=== PATIENT | male | born 1955 | race Caucasian/White ===

== ENCOUNTER 2017-04-14 13:24 | Emergency (ER) | payer OTHER ==
[2017-04-14 13:36] VITALS: RESP 18
[2017-04-14] MEDS ORDERED: DEXAMETHASONE SOD PHOSPHATE 10 MG/ML 1 ML VIAL IV STA (14:20)
--- NOTE | 2017-04-14 14:46 | ED ---
General Adult HPI - General Chief complaint: ENT Stated complaint: Sore Throat/Cough Time Seen by Provider: 04/14/17 14:06 Source: patient Mode of arrival: ambulatory Limitations: no limitations - History of Present Illness Initial comments: Patient is a 62-year-old male with past medical history of hypertension and hyperlipidemia who presents to the emergency department for evaluation of sore throat and voice changes. The patient reports that over the past one week has been experiencing a progressively worsening sore throat. He recently had a long distance car ride from [place] to here and during that ride he noticed that his throat became progressively more sore and he had a nonproductive cough. Patient states that he woke this morning and had no voice. Patient complains of sore throat which he rates a 4/10 and he is just sitting, a 6-7/10 when he swallows or coughs. Patient can speak only in a whisper reports that this is also painful. He reports no previous history of sore throat like this, he does state that he had pneumonia a couple of years ago and had a cough but he did not have a sore throat with that. He denies fevers, chills, nausea or vomiting. He denies any chest pain or trouble breathing. - Related Data Home Medications Medication Instructions Recorded Confirmed Atorvastatin [Lipitor] 20 mg PO DAILY 04/14/17 04/14/17 Cetirizine HCl [Zyrtec] 10 mg PO DAILY 04/14/17 04/14/17 Valsartan [Diovan] 160 mg PO DAILY 04/14/17 04/14/17 Previous Rx's Medication Instructions Recorded Azithromycin 0 mg PO DAILY #4 tab 04/14/17 Allergies Allergy/AdvReac Type Severity Reaction Status Date / Time No Known Allergies Allergy Verified 04/14/17 14:01 Review of Systems ROS Statement: Those systems with pertinent positive or pertinent negative responses have been documented in the HPI. ROS Other: All systems not noted in ROS Statement are negative. ENT: Reports: throat pain. Denies: dental pain Respiratory: Reports: cough. Denies: wheezes Cardiovascular: Denies: chest pain Endocrine: Denies: fatigue Gastrointestinal: Denies: abdominal pain, nausea, vomiting Genitourinary: Reports: frequency Musculoskeletal: Denies: back pain Skin: Denies: rash, lesions Neurological: Denies: headache, weakness Hematological/Lymphatic: Denies: easy bleeding, easy bruising Past Medical History Past Medical History: Hyperlipidemia, Hypertension History of Any Multi-Drug Resistant Organisms: None Reported Past Surgical History: No Surgical Hx Reported Past Psychological History: No Psychological Hx Reported Smoking Status: Never smoker Past Alcohol Use History: Occasional Past Drug Use History: None Reported General Exam Limitations: no limitations General appearance: alert, other (reclining comfortably, not tripoding, neck is not extended, he is clearing his oral secretions) Head exam: Present: atraumatic, normocephalic Eye exam: Present: PERRL ENT exam: Present: mucous membranes moist Neck exam: Present: lymphadenopathy (tender lymphadenopathy) Respiratory exam: Present: normal lung sounds bilaterally Cardiovascular Exam: Present: normal rhythm, tachycardia GI/Abdominal exam: Present: soft. Absent: distended, tenderness, guarding, rebound Rectal exam: Present: deferred Extremities exam: Present: normal inspection, normal capillary refill Neurological exam: Present: alert, oriented X3 Psychiatric exam: Present: normal affect Skin exam: Present: warm, dry Course Vital Signs 04/14/17 04/14/17 13:32 17:54 Temperature 98.5 F 98.8 F Pulse Rate 111 H 114 H Respiratory 18 18 Rate Blood Pressure 146/96 156/94 O2 Sat by Pulse 97 93 L Oximetry - Reevaluation(s) Reevaluation #1: Patient was reevaluated, sitting comfortably in the hospital bed. Patient tolerated x-rays well. IV fluids are infusing. 04/14/17 15:18 Reevaluation #2: Patient was reevaluated reports that he is feeling better feels that the steroids are helping him. He asked if he could have something to eat and was given ice cream. IV fluids continue to infuse. Advised patient that we will treat empirically for possible pneumonia with azithromycin. 04/14/17 16:44 EKG Findings - EKG Comments: EKG Findings:: EKG at 1447 - EKG evaluated at 1455 - EKG rate 103, rhythm is sinus tachycardia,, normal axis, normal intervals, OH 158, QRS 88, QTC 429, there are no acute ST elevations or depressions and no evidence of acute ischemia or infarction. Medical Decision Making - Medical Decision Making Patient was seen and examined, vital signs were reviewed Patient was noted to be tachycardic, normotensive, afebrile History of tick workup was ordered Patient history and physical exam there is concern for viral pharyngitis versus epiglottitis, the patient has no airway compromise, he is clearing his oral secretions and does not appear uncomfortable IV fluids and Decadron were ordered Patient was reevaluated, reported symptomatic improvement after Decadron. X-ray revealed normal soft tissues of the cervical spine and throat. Patient tolerated by mouth intake X-ray of the chest revealed a possible infiltrate, we'll treat empirically for community-acquired pneumonia. First dose of azithromycin was given in the emergency department the patient was discharged home with a prescription for azithromycin. Patient was advised that he had a mildly elevated bilirubin and that this needs to be followed up by his [facility] physician. In addition we discussed the findings of gross hematuria patient reports a history of kidney stones so he reports no flank pain at this time. I advised patient that he needs to follow up with his primary care physician for repeat urinalysis or return to emergency department should he have any development of pain or symptoms of kidney stone. Patient expressed understanding. Patient received a 2 L fluid bolus for his dehydration. His symptoms and proved throughout his emergency stay and he was discharged home with a prescription for by mouth azithromycin. Patient has plans to travel via airplane tomorrow. Patient was advised to call 911 or he can the nearest emergency department should he develop any new or worsening symptoms. Patient expressed understanding and agreement with plan. - Lab Data Result diagrams: 04/14/17 14:45 04/14/17 14:45 Lab Results 04/14/17 04/14/17 04/14/17 Range/Units 14:45 14:45 14:45 WBC 11.1 H (3.8-10.6) k/uL RBC 5.94 H (4.30-5.90) m/uL Hgb 17.8 H (13.0-17.5) gm/dL Hct 52.4 (39.0-53.0) % MCV 88.2 (80.0-100.0) fL MCH 29.9 (25.0-35.0) pg MCHC 34.0 (31.0-37.0) g/dL RDW 15.2 (11.5-15.5) % Plt Count 224 (150-450) k/uL Neutrophils % 84 % Lymphocytes % 5 % Monocytes % 9 % Eosinophils % 1 % Basophils % 1 % Neutrophils # 9.3 H (1.3-7.7) k/uL Lymphocytes # 0.5 L (1.0-4.8) k/uL Monocytes # 1.0 (0-1.0) k/uL Eosinophils # 0.1 (0-0.7) k/uL Basophils # 0.1 (0-0.2) k/uL Sodium 139 (137-145) mmol/L Potassium 4.3 (3.5-5.1) mmol/L Chloride 99 (98-107) mmol/L Carbon Dioxide 29 (22-30) mmol/L Anion Gap 11 mmol/L BUN 14 (9-20) mg/dL Creatinine 1.30 H (0.66-1.25) mg/dL Est GFR (MDRD) Af Amer >60 (>60 ml/min/1.73 sqM) Est GFR (MDRD) Non-Af 56 (>60 ml/min/1.73 sqM) Glucose 101 H (74-99) mg/dL Plasma Lactic Acid Farhan 1.0 (0.7-2.0) mmol/L Calcium 9.4 (8.4-10.2) mg/dL Total Bilirubin 2.6 H (0.2-1.3) mg/dL AST 19 (17-59) U/L ALT 28 (21-72) U/L Alkaline Phosphatase 86 (38-126) U/L Total Protein 7.8 (6.3-8.2) g/dL Albumin 4.6 (3.5-5.0) g/dL Urine Color Urine Appearance (Clear) Urine pH (5.0-8.0) Ur Specific [place] (1.001-1.035) Urine Protein (Negative) Urine Glucose (UA) (Negative) Urine Ketones (Negative) Urine Blood (Negative) Urine Nitrite (Negative) Urine Bilirubin (Negative) Urine Urobilinogen (<2.0) mg/dL Ur Leukocyte Esterase (Negative) Urine RBC (0-5) /hpf Urine WBC (0-5) /hpf Urine Mucus (None) /hpf Group A Strep Rapid (Negative) 04/14/17 04/14/17 Range/Units 14:45 14:45 WBC (3.8-10.6) k/uL RBC (4.30-5.90) m/uL Hgb (13.0-17.5) gm/dL Hct (39.0-53.0) % MCV (80.0-100.0) fL MCH (25.0-35.0) pg MCHC (31.0-37.0) g/dL RDW (11.5-15.5) % Plt Count (150-450) k/uL Neutrophils % % Lymphocytes % % Monocytes % % Eosinophils % % Basophils % % Neutrophils # (1.3-7.7) k/uL Lymphocytes # (1.0-4.8) k/uL Monocytes # (0-1.0) k/uL Eosinophils # (0-0.7) k/uL Basophils # (0-0.2) k/uL Sodium (137-145) mmol/L Potassium (3.5-5.1) mmol/L Chloride (98-107) mmol/L Carbon Dioxide (22-30) mmol/L Anion Gap mmol/L BUN (9-20) mg/dL Creatinine (0.66-1.25) mg/dL Est GFR (MDRD) Af Amer (>60 ml/min/1.73 sqM) Est GFR (MDRD) Non-Af (>60 ml/min/1.73 sqM) Glucose (74-99) mg/dL Plasma Lactic Acid Farhan (0.7-2.0) mmol/L Calcium (8.4-10.2) mg/dL Total Bilirubin (0.2-1.3) mg/dL AST (17-59) U/L ALT (21-72) U/L Alkaline Phosphatase (38-126) U/L Total Protein (6.3-8.2) g/dL Albumin (3.5-5.0) g/dL Urine Color Yellow Urine Appearance Clear (Clear) Urine pH 6.0 (5.0-8.0) Ur Specific [place] 1.022 (1.001-1.035) Urine Protein 1+ H (Negative) Urine Glucose (UA) Negative (Negative) Urine Ketones Negative (Negative) Urine Blood Moderate H (Negative) Urine Nitrite Negative (Negative) Urine Bilirubin Negative (Negative) Urine Urobilinogen 2.0 (<2.0) mg/dL Ur Leukocyte Esterase Negative (Negative) Urine RBC 99 H (0-5) /hpf Urine WBC 1 (0-5) /hpf Urine Mucus Rare H (None) /hpf Group A Strep Rapid Negative (Negative) Disposition Clinical Impression: Acute viral pharyngitis Disposition: HOME SELF-CARE Condition: Good Instructions: Pharyngitis (ED) Prescriptions: Azithromycin 0 mg PO DAILY #4 tab Referrals: None,Stated [Primary Care Provider] - 1-2 days
[2017-04-14] MEDS: SODIUM CHLORIDE 0.9% 500 ML IV SCH ×2 (14:50→14:51)
[2017-04-14 14:59] LABS: Basophils # (A) 0.1 k/uL (0-0.2); Basophils % (A) 1 %; CH 31.3; CHCM 35.7; Eosinophils # (A) 0.1 k/uL (0-0.7); Eosinophils % (A) 1 %; HCT 52.4 % (39.0-53.0); HDW 2.68; HGB 17.8 gm/dL (13.0-17.5); Luc # (Auto) 0.13; Luc % (Auto) 1; Lymphocytes # (A) 0.5 k/uL (1.0-4.8); Lymphocytes % (A) 5 %; MCH 29.9 pg (25.0-35.0); MCV 88.2 fL (80.0-100.0); Mean Platelet Volume 6.8; Monocytes % (A) 9 %; Neutrophils # (A) 9.3 k/uL (1.3-7.7); Neutrophils % (A) 84 %; RBC 5.94 m/uL (4.30-5.90); RDW 15.2 % (11.5-15.5); WBC 11.1 k/uL (3.8-10.6); WBC (Perox) 11.06
[2017-04-14 15:05] LABS: Appearance,Urine Clear (Clear); Bilirubin,Urine Negative (Negative); Glucose,Urine (UA) Negative (Negative); Ketones,Urine Negative (Negative); Leukocyte Esterase,Urine Negative (Negative); Mucus,Urine Rare /hpf; Nitrite,Urine Negative (Negative); Particle Count 2408; Protein,Urine 1+ (Negative); RBC,Urine 99 /hpf (0-5); Specific Gravity,Urine 1.022 (1.001-1.035); UA Billing (MACRO vs. MICRO) MICRO; WBC,Urine 1 /hpf (0-5)
[2017-04-14 15:10] LABS: ALT 28 U/L (21-72); AST 19 U/L (17-59); Alkaline Phosphatase 86 U/L (38-126); Anion Gap 11 mmol/L; Blood Urea Nitrogen 14 mg/dL (9-20); Calcium 9.4 mg/dL (8.4-10.2); Carbon Dioxide 29 mmol/L (22-30); Chloride 99 mmol/L (98-107); Glucose 101 mg/dL (74-99); Non-African American GFR(MDRD) 56 (>60 ml/min/1.73 sqM); Potassium 4.3 mmol/L (3.5-5.1); Sodium 139 mmol/L (137-145); Total Bilirubin 2.6 mg/dL (0.2-1.3); Total Protein 7.8 g/dL (6.3-8.2)
--- NOTE | 2017-04-14 15:10 | XR ---
EXAMINATION TYPE: XR chest 2V DATE OF EXAM: 04/14/2017 COMPARISON: NONE TECHNIQUE: PA and lateral views submitted. HISTORY: Cough FINDINGS: The lungs are clear and there is no pneumothorax, pleural or pleural effusion. Subsegmental linear c hanges left lung base. No overt failure.. IMPRESSION: 1. Left basilar subsegmental atelectasis or early infiltrate. Correlate clinically..
--- NOTE | 2017-04-14 15:11 | XR ---
EXAMINATION TYPE: XR soft tissue neck DATE OF EXAM: 04/14/2017 COMPARISON: NONE HISTORY: Hoarseness TECHNIQUE: 2 view submitted FINDINGS: Hypertrophic and degenerative change of the spine. Epiglottis has a normal appearance. Gume oids have a normal appearance. Airways patent. Prevertebral soft tissue structures within normal limi ts. IMPRESSION: 1. No definite acute process correlate clinically.
[2017-04-14] MEDS ORDERED: AZITHROMYCIN 500 MG TAB PO STA (16:39)
[2017-04-14 17:54] VITALS: BP 156/94; PULSE 114; TEMP 98.8
== END 2017-04-14 18:05 | disposition home or self-care (01) ==
LOC: EC 13:24
DX: J02.9 Acute pharyngitis, unspecified (principal); R00.0 Tachycardia, unspecified; E78.5 Hyperlipidemia, unspecified; I10 Essential (primary) hypertension; Z79.899 Other long term (current) drug therapy
CPT/HCPCS: 99283; 96374; 96361 ×2; 36415; 93005; 80053; 83605; 85025; 81001; 87040; 87081; 87430; 70360; 71020; J1100